=== PATIENT | male | born 1950 | race Caucasian/White ===

== ENCOUNTER → 2018-01-06 | Outpatient (CLI) | payer MEDICARE ==
--- NOTE | 2018-01-06 10:39 | PCVCIMAG ---
APPROVED REPORT Study performed: 01/06/2018 09:37:25 EXAM: Comprehensive 2D, Doppler, and color-flow Echocardiogram Patient Location: Echo lab Room #: 2Status: routine BSA: 1.98 HR: 50 bpmBP: 136/86 mmHg Rhythm: Bradycardia Other Information Study Quality: Good Indications Arrhythmia Atrial Fibrillation 2D Dimensions IVSd: 9.43 (7-11mm)LVOT Diam: 20.39 (18-24mm) LVDd: 51.80 mm PWd: 8.94 (7-11mm)Ascending Ao: 32.48 (22-36mm) LVDs: 25.69 (25-40mm) Left Atrium: 35.35 (27-40mm) Aortic Root: 28.56 mm LV Single Plane 4CH: 56.70 % LV Single Plane 2CH: 57.69 %[place]'s LVEF: 57.19 % Biplane EF: 56.5 % Volumes Left Atrial Volume (Systole) Single Plane 4CH: 47.43 mLSingle Plane 2CH: 83.29 mL Biplane LA Volume: 66.00 mLLA ESV Index: 33.00 mL/m2 Aortic Valve AoV Peak Soy.: 1.38 m/s AO Peak Gr.: 7.80 mmHgLVOT Max P.98 mmHg LVOT Max V: 1.09 m/s LENI Vmax: 2.57 cm2 AI Vmax: 3.76 m/s AI [place]: 0.87 m/s2 AI PHT: 1250.26 ms Mitral Valve E/A Ratio: 1.0 MV Decel. Time: 218.21 ms MV E Max Soy.: 0.71 m/s MV A Soy.: 0.72 m/s IVRT: 79.58 ms TDI E/Lateral E': 11.83E/Medial E': 10.14 Medial E' Soy.: 0.07 m/s Lateral E' Soy.: 0.06 m/s Pulmonary Valve PV Peak Soy.: 1.12 m/sPV Peak Gr.: 5.02 mmHg Pulmonary Vein P Vein S: 0.53 m/sP Vein A: 0.31 m/s P Vein D: 0.38 m/sP Vein A Dur.: 93.4 msec P Vein S/D Ratio: 1.39 Tricuspid Valve TV Vmax: 0.72 m/s Left Ventricle The left ventricle is normal size. There is normal LV segmental wall motion. There is normal left ventricular wall thickness. Left ventricular systolic function is normal. The left ventricular ejection fraction is within the normal range. LVEF is 55-60%. The left ventricular diastolic function is normal. Right Ventricle The right ventricle is normal size. The right ventricular systolic function is normal. Atria The left atrium size is normal. The right atrium size is normal. Aortic Valve Aortic valve is trileaflet. The aortic valve is normal in structure and function. Trace to mild aortic regurgitation. There is no aortic valvular stenosis. Mitral Valve The mitral valve is normal in structure. There is no mitral valve regurgitation noted. No evidence of mitral valve stenosis. Tricuspid Valve The tricuspid valve is normal in structure. There is no tricuspid valve regurgitation noted. Pulmonic Valve The pulmonary valve is normal in structure. Trace pulmonic regurgitation. Great Vessels The aortic root is normal in size. The ascending aorta is normal in size. Aortic arch is normal in caliber. IVC is normal in size and collapses with >50% inspiration Pericardium There is no pericardial effusion. There is no pleural effusion. <Conclusion> The left ventricle is normal size. LVEF is 55-60%. Aortic valve is trileaflet. The aortic valve is normal in structure and function. Trace to mild aortic regurgitation. The mitral valve is normal in structure. The tricuspid valve is normal in structure. The pulmonary valve is normal in structure. Trace pulmonic regurgitation. There is no pericardial effusion.
== END | disposition home or self-care (01) ==
LOC: PCVCIMAG 09:37
PROVIDERS: ATTEND Internal Medicine
DX: I49.9 Cardiac arrhythmia, unspecified (principal); I48.0 Paroxysmal atrial fibrillation
CPT/HCPCS: 93306

== ENCOUNTER → 2018-02-10 | Outpatient (CLI) | payer MEDICARE ==
--- NOTE | 2018-02-11 00:15 | PCVCIMAG ---
APPROVED REPORT Study performed: 02/10/2018 14:08:50 Exam: Stress Echocardiogram Indication: Atrial Fibrillation Patient Location: Echo lab Stress Nurse: Queta Espinal RN Room #: 2 Status: routine Ht: 5 ft 7 in HR: 61 bpm BP: 140/74 mmHg Rhythm: NSR Medical History Medical History: Atrial Fibrillation Cardiac Risk Factors: FHX of CAD Previous Cardiac Procedures: none Pretest Chest Pain Characteristics: No chest pain Exercise History: Physically active Procedure The patient underwent an Exercise Stress Test using the Vanessa Protocol. Blood pressure, heart rate, and EKG were monitored. An Echocardiogram was performed by emission technician in four stages in quad fashion. At peak stress, four selected images were obtained and placed side by side with resting images for comparison. Stress Test Details Stress Test: Exercise stress testing was performed using a Vanessa protocol. HR Resting HR: 61 bpmMax Heart Rate (APMHR): 151 bpm Max HR Achieved: 148 bpmTarget HR (85% APMHR): 128 bpm % of APMHR: 98 Recovery HR: 71 bpm HR response to stress: Normal HR response to stress BP Resting BP: 140/70 mmHg Max BP: 200/60 mmHg Recovery BP: 146/82 mmHg ECG Resting ECG: Sinus Rhythm Stress ECG: Sinus Rhythm ST Change: Non-ischemic Arrhythmia: rare PACs Recovery ECG: Sinus Rhythm Recovery ST Change: Non-ischemic Recovery Arrhythmia: None Clinical Reason for Termination: Maximal effort Stress Symptoms: none Exercise duration: 10 min 35 sec Highest Stage Achieved: Stage 4: 4.2 mph at 16% grade. Exercise capacity: 13.7 METs Overall Exercise Capacity for Age: Good Scale: Active Angina Score: None No complications. Stress ECG Conclusion The patient exercised according to the VANESSA protocol for 10:35 mins; achieving a work level of 13.7 METS. The resting heart rate of 61 bpm allen to a maximum heart rate of 148 bpm. This value represents 98 % of the maximal, age-predicted heart rate. The resting blood pressure of 140/74 mmHg, allen to a maximum blood pressure of 200/60 mmHg. The exercise test was stopped due to fatigue. Pre-Stress Echo The resting Echocardiogram showed normal left ventricular contractility with an estimated Ejection Fraction of about 55-60%. Normal wall motion in all segments on baseline images. Post-Stress Echo The stress Echocardiogram showed normal left ventricular contractility with an estimated Ejection Fraction of about 65-70%. Normal augmentation of wall motion in all segments on post stress images. Clinical No clinical or ECG evidence for ischemia. Conclusion Clinical Response: Non-ischemic Exercise Capacity: Superior Stress ECG Response: Non-ischemic Stress Echo Images: Non-ischemic No clinical, EKG or echocardiographic evidence for ischemia. No echocardiographic evidence for exercise induced ischemia. Normal stress echocardiogram with maximal exercise stress. 1. LOW RISK STUDY No prior study available for comparison. <Conclusion> No clinical, EKG or echocardiographic evidence for ischemia. No echocardiographic evidence for exercise induced ischemia. Normal stress echocardiogram with maximal exercise stress. 1. LOW RISK STUDY
== END | disposition home or self-care (01) ==
LOC: PCVCIMAG 16:09
PROVIDERS: ATTEND Internal Medicine
DX: I48.91 Unspecified atrial fibrillation (principal); G47.30 Sleep apnea, unspecified; E78.5 Hyperlipidemia, unspecified; Z86.79 Personal history of other diseases of the circulatory system; Z79.82 Long term (current) use of aspirin
CPT/HCPCS: 93325; 93351; G0463